=== PATIENT | male | born 1985 | race Caucasian/White ===

== ENCOUNTER 2018-08-28 20:59 | Inpatient (IN) | payer OTHER ==
[2018-08-28] MEDS ORDERED: Sodium Chloride 0.9% 1,000 ML IV STA (21:25)
[2018-08-28 22:03] LABS: VENOUS BLOOD GAS BASE EXCESS 2.9 mmol/L (0.0-2.0); VENOUS BLOOD GAS PCO2 34 mmHg (40-60); VENOUS BLOOD GAS PO2 21 mm/Hg (30-55); VENOUS BLOOD PH 7.49 (7.32-7.43)
[2018-08-28 22:35] LABS: BASO % 0.2 % (0.0-2.0); EOS % 0.4 % (0.0-4.0); HEMOGLOBIN 14.6 g/dL (12.0-18.0); INR 1.2; LYMPH # 0.7 K/uL (1.0-4.3); LYMPH % 7.5 % (20.0-40.0); MEAN CELL VOLUME 90.4 fl (80.0-94.0); MEAN CORPUSCULAR HEMOGLOBIN 30.7 pg (27.0-31.0); MEAN CORPUSCULAR HGB CONC 33.9 g/dL (33.0-37.0); MEAN PLATELET VOLUME 7.9 fl (7.2-11.7); MONO # 0.1 K/uL (0.0-0.8); MONO % 1.3 % (0.0-10.0); NEUT # 8.6 K/uL (1.8-7.0); NEUT % 90.6 % (50.0-75.0); NRBC % 0.1 % (0.0-0.0); PLATELET COUNT 209 K/uL (130-400); PROTHROMBIN TIME 13.9 Seconds (9.8-13.1); RBC 4.75 Mil/uL (4.40-5.90); RED CELL DISTRIBUTION WIDTH 13.5 % (11.5-14.5); WHITE BLOOD COUNT 9.5 K/uL (4.8-10.8)
[2018-08-28 22:38] LABS: BLOOD UREA NITROGEN 14 mg/dl (9-20); CALCIUM 8.8 mg/dL (8.4-10.2); GFR NON-AFRICAN AMERICAN > 60; PARTIAL THROMBOPLASTIN TIME 27.6 Seconds (25.6-37.1)
[2018-08-28 23:19] LABS: BANDS 5 % (0-2); LYMPHOCYTE 9 % (20-50); MONOCYTE 2 % (0-10); NEUTROPHIL 84 % (42-75); PLATELET ESTIMATE NORMAL (NORMAL); TOTAL CELLS COUNTED 100
[2018-08-28] MEDS ORDERED: Pantoprazole 40 MG in Sodium Chloride 0.9% 100 ML IVPB STA (23:22)
[2018-08-28 23:44] LABS: BASO % 0.2 % (0.0-2.0); EOS % 0.1 % (0.0-4.0); HEMOGLOBIN 13.9 g/dL (12.0-18.0); LYMPH # 0.6 K/uL (1.0-4.3); LYMPH % 4.6 % (20.0-40.0); MEAN CELL VOLUME 88.1 fl (80.0-94.0); MEAN CORPUSCULAR HEMOGLOBIN 30.2 pg (27.0-31.0); MEAN CORPUSCULAR HGB CONC 34.3 g/dL (33.0-37.0); MEAN PLATELET VOLUME 7.6 fl (7.2-11.7); MONO # 0.3 K/uL (0.0-0.8); MONO % 2.7 % (0.0-10.0); NEUT # 11.7 K/uL (1.8-7.0); NEUT % 92.4 % (50.0-75.0); RBC 4.6 Mil/uL (4.40-5.90); RED CELL DISTRIBUTION WIDTH 13.4 % (11.5-14.5); WHITE BLOOD COUNT 12.7 K/uL (4.8-10.8)
--- NOTE | 2018-08-28 23:44 | ED PDOC ---
HPI: Abdomen Time Seen by Provider: 08/28/18 21:08 Chief Complaint (Nursing): Abdominal Pain History Per: Patient History/Exam Limitations: no limitations Onset/Duration Of Symptoms: Hrs Outside of [place] travel?: No Current Symptoms Are (Timing): Still Present Additional Complaint(s): 32 year old M with no PMHx presenting with rectal bleeding and fever. States he has felt an internal hemorrhoid in the past that he has been able to push back in. Today he states he was using his bidet and he believes it became irritated and has bled profusely all day. He states he feels weak and has mild abdominal discomfort. Also complaining of feeling chills, sweats and nasal congestion. PMD: None Past Medical History Reviewed: Historical Data, Nursing Documentation, Vital Signs Vital Signs: Last Vital Signs Temp 100.3 F H 08/28/18 21:00 Pulse 148 H 08/28/18 21:00 Resp 22 08/28/18 21:00 BP 138/74 08/28/18 21:00 Pulse Ox 99 08/28/18 21:00 - Medical History PMH: No Chronic Diseases - Family History Family History: States: Unknown Family Hx - Home Medications Home Medications: Ambulatory Orders Medication Instructions Recorded No Known Home Med 08/29/18 - Allergies Allergies/Adverse Reactions: Allergies Allergy/AdvReac Type Severity Reaction Status Date / Time No Known Allergies Allergy Verified 08/28/18 21:00 Review of Systems ROS Statement: Except As Marked, All Systems Reviewed And Found Negative Constitutional: Positive for: Fever, Chills, Sweats ENT: Positive for: Nose Congestion Gastrointestinal: Positive for: Other (Rectal bleeding) Physical Exam - Reviewed Nursing Documentation Reviewed: Yes Vital Signs Reviewed: Yes - Physical Exam Appears: Positive for: Non-toxic, No Acute Distress. Negative for: Well (Pale) Head Exam: Positive for: ATRAUMATIC, NORMAL INSPECTION, NORMOCEPHALIC Skin: Positive for: Normal Color, Warm, DRY Eye Exam: Positive for: EOMI, Normal appearance, PERRL ENT: Positive for: Normal ENT Inspection Neck: Positive for: Normal, Painless ROM Cardiovascular/Chest: Positive for: Regular Rate, Rhythm Respiratory: Positive for: CNT, Normal Breath Sounds Gastrointestinal/Abdominal: Positive for: Normal Exam, Soft. Negative for: Tenderness Back: Positive for: Normal Inspection Rectal: Positive for: Other (Venous bleeding, non-pulsatile from rectum (personnel director: Rosie Ga RN), difficult to evaluate for external hemorrhoid due to active bleeding) Extremity: Positive for: Normal ROM Neurologic/Psych: Positive for: Alert, Oriented - Laboratory Results Result Diagrams: 08/28/18 23:33 08/28/18 21:49 Lab Results: pO2 21 mm/Hg (30-55) L 08/28/18 21:56 VBG pH 7.49 (7.32-7.43) H 08/28/18 21:56 VBG pCO2 34 mmHg (40-60) L 08/28/18 21:56 VBG HCO3 25.7 mmol/L 08/28/18 21:56 VBG Total CO2 26.9 mmol/L (22-28) 08/28/18 21:56 VBG O2 Sat (Calc) 46.3 % (40-65) 08/28/18 21:56 VBG Base Excess 2.9 mmol/L (0.0-2.0) H 08/28/18 21:56 VBG Potassium 4.1 mmol/L (3.6-5.2) 08/28/18 21:56 Sodium 137.0 mmol/L (132-148) 08/28/18 21:56 Chloride 104.0 mmol/L (98-107) 08/28/18 21:56 Glucose 109 mg/dL (75-110) 08/28/18 21:56 Lactate 2.7 mmol/L (0.7-2.1) H 08/28/18 21:56 FiO2 21.0 % 08/28/18 21:56 Blood Gas Comments Lac=2.7 08/28/18 21:56 Crit Value Called To josh Taylor 08/28/18 21:56 Crit Value Called By 22 08/28/18 21:56 Crit Value Read Back Y 08/28/18 21:56 Blood Gas Notified Time 220208/28/18 21:56 PT 13.9 Seconds (9.8-13.1) H 08/28/18 21:49 INR 1.2 08/28/18 21:49 APTT 27.6 Seconds (25.6-37.1) 08/28/18 21:49 - ECG O2 Sat by Pulse Oximetry: 99 Pulse Ox Interpretation: Normal Medical Decision Making Medical Decision MakinPM Patient presenting with fever and rectal bleeding --Mild fever, possibly URI or influenza, patient did not get flu shot --Rectal bleedin IV's placed, surgery aware --Unclear if related to hemorrhoid, angiodysplasia, or other cause 1130PM --Surgery at bedside, placed packing with suture --Will continue to monitor --2nd CBC pending 1230AM --Bleeding has slowed significantly status post packing by surgical manager --BP 96/43, HR 104 --Will admit to hospitalist service for overnight observation --Dr. Maya is made aware of case by surgical manager 200AM --Bleeding stopped by placing guauze soaked in TXA --CT shows diverticulosis --Patient stable for Tele --HR 93 Disposition - Clinical Impression Clinical Impression: Rectal bleeding - Disposition Disposition Time: 00:27 Condition: FAIR
--- NOTE | 2018-08-29 00:03 | CP.PCM.CON ---
<Frantz Fan - Last Filed: 08/28/18 23:56> History of Present Illness - History of Present Illness History of Present Illness: General Surgery Consult Note for Dr. Maya 32 year old male, past medical history of hemorrhoids, presents to the emergency department with rectal bleeding that started earlier today. Patient states he was feeling feverish, sweaty, and noticed bright red blood per rectum. Patient states he is having bowel movements with clots and bright red blood. He has hemorrhoids and occasionally noticed blood on the toilet paper after bowel movements, but he has never bled this much before. Patient admits to chronic constipation that worsens with fatty foods which has exacerbated his hemorrhoids in the past. He has at times in the past had to push the hemorrhoid back in after a bowel movement. Denies abdominal pain, nausea, or vomiting. Patient has never had a EGD or colonoscopy before. Denies shortness of breath, dizziness, headaches, chest pain, palpitations, or urinary symptoms. PMH: Hemorrhoids, Chronic constipation PSH: None FH: Noncontributory SH: Denies tobacco, alcohol, drugs ALL: NKDA Meds: See MAR Review of Systems - Constitutional Constitutional: Excessive Sweating, Fever. absent: Chills - EENT Eyes: absent: Blurred Vision, Change in Vision Nose/Mouth/Throat: absent: Nasal Congestion, Nasal Discharge - Cardiovascular Cardiovascular: absent: Chest Pain, Dyspnea - Respiratory Respiratory: absent: Cough, Dyspnea - Gastrointestinal Gastrointestinal: Change in Stool Character, Constipation. absent: Abdominal Pain, Nausea, Vomiting - Genitourinary Genitourinary: absent: Difficulty Urinating, Dysuria - Musculoskeletal Musculoskeletal: absent: Back Pain, Neck Pain - Integumentary Integumentary: Bleeding Lesions - Neurological Neurological: absent: Confusion, Dizziness, Headaches - Psychiatric Psychiatric: absent: Anxiety, Depression Past Patient History - Past Social History Smoking Status: Unknown If Ever Smoked - GASTROINTESTINAL Hx Hemorrhoids: Yes - PSYCHIATRIC Hx Substance Use: No Meds Allergies/Adverse Reactions: Allergies Allergy/AdvReac Type Severity Reaction Status Date / Time No Known Allergies Allergy Verified 08/28/18 21:00 - Medications Medications: Current Medications Pantoprazole Sodium 40 mg/ (Sodium Chloride) 100 mls @ 20 mls/hr IVPB STAT STA Stop: 08/29/18 04:21 Physical Exam - Constitutional Appears: Non-toxic, No Acute Distress - Head Exam Head Exam: ATRAUMATIC, NORMAL INSPECTION, NORMOCEPHALIC - Eye Exam Eye Exam: EOMI - ENT Exam ENT Exam: Mucous Membranes Moist - Respiratory Exam Respiratory Exam: NORMAL BREATHING PATTERN. absent: Respiratory Distress - Cardiovascular Exam Cardiovascular Exam: Tachycardia, REGULAR RHYTHM - GI/Abdominal Exam GI & Abdominal Exam: Normal Bowel Sounds, Soft. absent: Tenderness - Rectal Exam Rectal Exam: Hemorrhoids Additional comments: Actively bleeding external hemorrhoid in the right anterior position with a visible thrombosed hemorrhoid adjacent - Neurological Exam Neurological exam: Alert, Oriented x3 - Psychiatric Exam Psychiatric exam: Normal Affect, Normal Mood - Skin Skin Exam: Dry, Intact, Normal Color, Warm Results - Vital Signs Recent Vital Signs: Last Vital Signs Temp 100.3 F H 08/28/18 23:49 Pulse 110 H 08/28/18 23:49 Resp 22 08/28/18 23:49 BP 97/56 L 08/28/18 23:49 Pulse Ox 98 08/28/18 23:49 - Labs Result Diagrams: 08/28/18 23:33 08/28/18 21:49 Labs: Laboratory Results - last 24 hr 08/28/18 08/28/18 08/28/18 21:49 21:49 21:49 WBC 9.5 RBC 4.75 Hgb 14.6 Hct 42.9 MCV 90.4 MCH 30.7 MCHC 33.9 RDW 13.5 Plt Count 209 MPV 7.9 Neut % (Auto) 90.6 H Lymph % (Auto) 7.5 L [place] % (Auto) 1.3 Eos % (Auto) 0.4 Baso % (Auto) 0.2 Neut # (Auto) 8.6 H Lymph # (Auto) 0.7 L [place] # (Auto) 0.1 Eos # (Auto) 0.0 Baso # (Auto) 0.0 Neutrophils % (Manual) 84 H Band Neutrophils % 5 H Lymphocytes % (Manual) 9 L Monocytes % (Manual) 2 Platelet Estimate Normal PT INR APTT pO2 VBG pH VBG pCO2 VBG HCO3 VBG Total CO2 VBG O2 Sat (Calc) VBG Base Excess VBG Potassium Glucose Lactate FiO2 Blood Gas Comments Crit Value Called To Crit Value Called By Crit Value Read Back Blood Gas Notified Time Sodium 137 Potassium 3.9 Chloride 104 Carbon Dioxide 24 Anion Gap 13 BUN 14 Creatinine 1.2 Est GFR ( Amer) > 60 Est GFR (Non-Af Amer) > 60 Random Glucose 108 Calcium 8.8 Venous Blood Potassium Influenza Typ A,B (EIA) Negative for flu a/b Blood Type Antibody Screen Crossmatch BBK History Checked 08/28/18 08/28/18 08/28/18 21:49 21:49 21:56 WBC RBC Hgb Hct MCV MCH MCHC RDW Plt Count MPV Neut % (Auto) Lymph % (Auto) [place] % (Auto) Eos % (Auto) Baso % (Auto) Neut # (Auto) Lymph # (Auto) [place] # (Auto) Eos # (Auto) Baso # (Auto) Neutrophils % (Manual) Band Neutrophils % Lymphocytes % (Manual) Monocytes % (Manual) Platelet Estimate PT 13.9 H INR 1.2 APTT 27.6 pO2 21 L VBG pH 7.49 H VBG pCO2 34 L VBG HCO3 25.7 VBG Total CO2 26.9 VBG O2 Sat (Calc) 46.3 VBG Base Excess 2.9 H VBG Potassium 4.1 Glucose 109 Lactate 2.7 H FiO2 21.0 Blood Gas Comments Lac=2.7 Crit Value Called To josh Taylor Crit Value Called By 22 Crit Value Read Back Y Blood Gas Notified Time 2202 Sodium 137.0 Potassium Chloride 104.0 Carbon Dioxide Anion Gap BUN Creatinine Est GFR ( Amer) Est GFR (Non-Af Amer) Random Glucose Calcium Venous Blood Potassium 4.1 Influenza Typ A,B (EIA) Blood Type B POSITIVE Antibody Screen Negative Crossmatch See Detail BBK History Checked No verified bt 08/28/18 23:33 WBC 12.7 H RBC 4.60 Hgb 13.9 Hct 40.5 MCV 88.1 D MCH 30.2 MCHC 34.3 RDW 13.4 Plt Count 186 MPV 7.6 Neut % (Auto) 92.4 H Lymph % (Auto) 4.6 L [place] % (Auto) 2.7 Eos % (Auto) 0.1 Baso % (Auto) 0.2 Neut # (Auto) 11.7 H Lymph # (Auto) 0.6 L [place] # (Auto) 0.3 Eos # (Auto) 0.0 Baso # (Auto) 0.0 Neutrophils % (Manual) Band Neutrophils % Lymphocytes % (Manual) Monocytes % (Manual) Platelet Estimate PT INR APTT pO2 VBG pH VBG pCO2 VBG HCO3 VBG Total CO2 VBG O2 Sat (Calc) VBG Base Excess VBG Potassium Glucose Lactate FiO2 Blood Gas Comments Crit Value Called To Crit Value Called By Crit Value Read Back Blood Gas Notified Time Sodium Potassium Chloride Carbon Dioxide Anion Gap BUN Creatinine Est GFR ( Amer) Est GFR (Non-Af Amer) Random Glucose Calcium Venous Blood Potassium Influenza Typ A,B (EIA) Blood Type Antibody Screen Crossmatch BBK History Checked Assessment & Plan - Assessment and Plan (Free Text) Assessment: 32M w/ bleeding external hemorrhoid Plan: Applied tampon pressure dressing - continue to monitor Monitor for acute bleeding episodes AM labs Transfuse as needed Continue IVF NPO Continue to monitor vitals If patient's bleeding not adequately controlled, will proceed to OR in the morning D/w Dr. Francesco Fan PGY1 <Nader Ryan - Last Filed: 08/29/18 11:25> History of Present Illness - History of Present Illness History of Present Illness: Patient was seen and examined at the bedside. Agree with resident's note above. Still has bleeding from his internal hemorrhoid. Meds - Medications Medications: Current Medications Acetaminophen (Tylenol 325mg Tab) 650 mg PO Q6 PRN PRN Reason: Fever >100.4 F Docusate Sodium (Colace) 100 mg PO BID [facility] Sodium Chloride (Sodium Chloride 0.9%) 1,000 mls @ 150 mls/hr IV .Q6H40M [facility] Stop: 08/30/18 00:17 Last Admin: 08/29/18 09:14 Dose: Not Given Azithromycin 500 mg/ Sodium (Chloride) 250 mls @ 250 mls/hr IVPB DAILY [facility]; Protocol Last Admin: 08/29/18 10:24 Dose: 250 mls/hr Pantoprazole Sodium (Protonix Ec Tab) 40 mg PO DAILY [facility] Last Admin: 08/29/18 09:15 Dose: Not Given Physical Exam - Rectal Exam Additional comments: bleeding internal hemorrhoid on the right Results - Vital Signs Recent Vital Signs: Last Vital Signs Temp 98.6 F 08/29/18 08:24 Pulse 87 08/29/18 08:24 Resp 20 08/29/18 08:24 BP 119/45 L 08/29/18 08:24 Pulse Ox 99 08/29/18 08:24 - Labs Result Diagrams: 08/29/18 04:35 08/29/18 04:35 Labs: Laboratory Results - last 24 hr 08/28/18 08/28/18 08/28/18 21:49 21:49 21:49 WBC 9.5 RBC 4.75 Hgb 14.6 Hct 42.9 MCV 90.4 MCH 30.7 MCHC 33.9 RDW 13.5 Plt Count 209 MPV 7.9 Neut % (Auto) 90.6 H Lymph % (Auto) 7.5 L [place] % (Auto) 1.3 Eos % (Auto) 0.4 Baso % (Auto) 0.2 Neut # (Auto) 8.6 H Lymph # (Auto) 0.7 L [place] # (Auto) 0.1 Eos # (Auto) 0.0 Baso # (Auto) 0.0 Neutrophils % (Manual) 84 H Band Neutrophils % 5 H Lymphocytes % (Manual) 9 L Monocytes % (Manual) 2 Platelet Estimate Normal PT INR APTT pO2 VBG pH VBG pCO2 VBG HCO3 VBG Total CO2 VBG O2 Sat (Calc) VBG Base Excess VBG Potassium Glucose Lactate FiO2 Blood Gas Comments Crit Value Called To Crit Value Called By Crit Value Read Back Blood Gas Notified Time Sodium 137 Potassium 3.9 Chloride 104 Carbon Dioxide 24 Anion Gap 13 BUN 14 Creatinine 1.2 Est GFR ( Amer) > 60 Est GFR (Non-Af Amer) > 60 Random Glucose 108 Calcium 8.8 Venous Blood Potassium Influenza Typ A,B (EIA) Negative for flu a/b Blood Type Blood Type Confirm Antibody Screen Crossmatch BBK History Checked 08/28/18 08/28/18 08/28/18 21:49 21:49 21:56 WBC RBC Hgb Hct MCV MCH MCHC RDW Plt Count MPV Neut % (Auto) Lymph % (Auto) [place] % (Auto) Eos % (Auto) Baso % (Auto) Neut # (Auto) Lymph # (Auto) [place] # (Auto) Eos # (Auto) Baso # (Auto) Neutrophils % (Manual) Band Neutrophils % Lymphocytes % (Manual) Monocytes % (Manual) Platelet Estimate PT 13.9 H INR 1.2 APTT 27.6 pO2 21 L VBG pH 7.49 H VBG pCO2 34 L VBG HCO3 25.7 VBG Total CO2 26.9 VBG O2 Sat (Calc) 46.3 VBG Base Excess 2.9 H VBG Potassium 4.1 Glucose 109 Lactate 2.7 H FiO2 21.0 Blood Gas Comments Lac=2.7 Crit Value Called To josh Taylor Crit Value Called By 22 Crit Value Read Back Y Blood Gas Notified Time 2203 Sodium 137.0 Potassium Chloride 104.0 Carbon Dioxide Anion Gap BUN Creatinine Est GFR ( Amer) Est GFR (Non-Af Amer) Random Glucose Calcium Venous Blood Potassium 4.1 Influenza Typ A,B (EIA) Blood Type B POSITIVE Blood Type Confirm Antibody Screen Negative Crossmatch See Detail BBK History Checked No verified bt 08/28/18 08/28/18 08/29/18 23:33 23:33 04:35 WBC 12.7 H 14.1 H RBC 4.60 4.30 L Hgb 13.9 13.1 Hct 40.5 38.0 MCV 88.1 D 88.4 MCH 30.2 30.5 MCHC 34.3 34.5 RDW 13.4 13.6 Plt Count 186 184 MPV 7.6 Neut % (Auto) 92.4 H Lymph % (Auto) 4.6 L [place] % (Auto) 2.7 Eos % (Auto) 0.1 Baso % (Auto) 0.2 Neut # (Auto) 11.7 H Lymph # (Auto) 0.6 L [place] # (Auto) 0.3 Eos # (Auto) 0.0 Baso # (Auto) 0.0 Neutrophils % (Manual) Band Neutrophils % Lymphocytes % (Manual) Monocytes % (Manual) Platelet Estimate PT INR APTT pO2 VBG pH VBG pCO2 VBG HCO3 VBG Total CO2 VBG O2 Sat (Calc) VBG Base Excess VBG Potassium Glucose Lactate FiO2 Blood Gas Comments Crit Value Called To Crit Value Called By Crit Value Read Back Blood Gas Notified Time Sodium Potassium Chloride Carbon Dioxide Anion Gap BUN Creatinine Est GFR ( Amer) Est GFR (Non-Af Amer) Random Glucose Calcium Venous Blood Potassium Influenza Typ A,B (EIA) Blood Type Blood Type Confirm B POSITIVE Antibody Screen Crossmatch BBK History Checked 08/29/18 04:35 WBC RBC Hgb Hct MCV MCH MCHC RDW Plt Count MPV Neut % (Auto) Lymph % (Auto) [place] % (Auto) Eos % (Auto) Baso % (Auto) Neut # (Auto) Lymph # (Auto) [place] # (Auto) Eos # (Auto) Baso # (Auto) Neutrophils % (Manual) Band Neutrophils % Lymphocytes % (Manual) Monocytes % (Manual) Platelet Estimate PT INR APTT pO2 VBG pH VBG pCO2 VBG HCO3 VBG Total CO2 VBG O2 Sat (Calc) VBG Base Excess VBG Potassium Glucose Lactate FiO2 Blood Gas Comments Crit Value Called To Crit Value Called By Crit Value Read Back Blood Gas Notified Time Sodium 137 Potassium 3.6 Chloride 104 Carbon Dioxide 23 Anion Gap 14 BUN 13 Creatinine 1.1 Est GFR ( Amer) > 60 Est GFR (Non-Af Amer) > 60 Random Glucose 122 H Calcium 8.2 L Venous Blood Potassium Influenza Typ A,B (EIA) Blood Type Blood Type Confirm Antibody Screen Crossmatch BBK History Checked Assessment & Plan - Assessment and Plan (Free Text) Assessment: 32 y.o. male with bleeding internal hemorrhoid Plan: - To OR for Hemmorhoidectomy
[2018-08-29] MEDS ORDERED: Oxycodone/Acetaminophen 5/325 mg Tab PO PRN ×3 (00:18→12:47)
[2018-08-29] MEDS ORDERED: TRANEXAMIC ACID IVPB ONE (01:16)
[2018-08-29] MEDS ORDERED: Lidocaine 2% w Epi 1:100,000 Inj IJ ONE (01:30)
--- NOTE | 2018-08-29 01:55 | CP.PCM.HP ---
History of Present Illness - History of Present Illness History of Present Illness: 32 yo M with pmhx of internal hemorrhoids presents with rectal bleeding. Pt states that for approximately 12 hours he has been experiencing a constant flow of blood from his rectum. Started when he was experincing a bowel movement. He tried applying pressure, however, bleeding could not be controlled Of note: he reports dx of internal hemorrhoids 10 years ago. Tx: bedet and rectal cream. Denies anal trauma, or foreign objects placed in his rectum. Denies family or personal history of difficulty clotting. He also mentions 1 day history of fever, chills with shortness of breath. No current fever, or SOB. PMD: None Surg: none Soc: Denies: smoking, alcohol, illicit drugs; lives with Familyhx: father with hemorrhoids; Mother with cardiac stent Rx: Zyrtec NKDA Present on Admission - Present on Admission Any Indicators Present on Admission: No History of Uncontrolled Diabetes: No Urinary Catheter: No Decubitus Ulcer Present: No Review of Systems - Cardiovascular Cardiovascular: absent: Chest Pain, Chest Pain at Rest - Respiratory Respiratory: absent: Cough, Dyspnea, Hemoptysis - Gastrointestinal Gastrointestinal: Change in Stool Character, Hematochezia. absent: Abdominal Pain - Neurological Neurological: absent: Abnormal Gait - Hematologic/Lymphatic Hematologic: absent: Easy Bleeding, Easy Bruising Past Patient History - Past Social History Smoking Status: Never Smoked Alcohol: None Drugs: Denies Home Situation {Lives}: With Family - CARDIAC Hx Cardiac Disorders: No - PULMONARY Hx Respiratory Disorders: No - NEUROLOGICAL Hx Neurological Disorder: No - HEENT Hx HEENT Problems: No - RENAL Hx Chronic Kidney Disease: No - ENDOCRINE/METABOLIC Hx Endocrine Disorders: No - HEMATOLOGICAL/ONCOLOGICAL Hx Blood Disorders: No - INTEGUMENTARY Hx Dermatological Problems: No - MUSCULOSKELETAL/RHEUMATOLOGICAL Hx Musculoskeletal Disorders: No - GASTROINTESTINAL Hx Gastrointestinal Disorders: Yes Hx Hemorrhoids: Yes - GENITOURINARY/GYNECOLOGICAL Hx Genitourinary Disorders: No - PSYCHIATRIC Hx Psychophysiologic Disorder: No Hx Substance Use: No - SURGICAL HISTORY Hx Surgeries: No Meds Allergies/Adverse Reactions: Allergies Allergy/AdvReac Type Severity Reaction Status Date / Time No Known Allergies Allergy Verified 08/28/18 21:00 Physical Exam - Constitutional Appears: No Acute Distress - Eye Exam Eye Exam: EOMI - ENT Exam ENT Exam: Mucous Membranes Moist - Respiratory Exam Respiratory Exam: Clear to Auscultation Bilateral, NORMAL BREATHING PATTERN. absent: Wheezes, Respiratory Distress - Cardiovascular Exam Cardiovascular Exam: Tachycardia, +S1, +S2 - GI/Abdominal Exam GI & Abdominal Exam: Normal Bowel Sounds, Soft. absent: Tenderness - Rectal Exam Additional comments: Active rectal bleed with packing in place. - Neurological Exam Neurological exam: Alert, CN II-XII Intact, Oriented x3 - Psychiatric Exam Psychiatric exam: Normal Affect, Normal Mood Results - Vital Signs Recent Vital Signs: Last Vital Signs Temp 100.3 F H 08/28/18 23:49 Pulse 110 H 08/28/18 23:49 Resp 22 08/28/18 23:49 BP 97/56 L 08/28/18 23:49 Pulse Ox 99 08/29/18 00:29 - Labs Result Diagrams: 08/28/18 23:33 08/28/18 21:49 Labs: Laboratory Results - last 24 hr 08/28/18 08/28/18 08/28/18 21:49 21:49 21:49 WBC 9.5 RBC 4.75 Hgb 14.6 Hct 42.9 MCV 90.4 MCH 30.7 MCHC 33.9 RDW 13.5 Plt Count 209 MPV 7.9 Neut % (Auto) 90.6 H Lymph % (Auto) 7.5 L [place] % (Auto) 1.3 Eos % (Auto) 0.4 Baso % (Auto) 0.2 Neut # (Auto) 8.6 H Lymph # (Auto) 0.7 L [place] # (Auto) 0.1 Eos # (Auto) 0.0 Baso # (Auto) 0.0 Neutrophils % (Manual) 84 H Band Neutrophils % 5 H Lymphocytes % (Manual) 9 L Monocytes % (Manual) 2 Platelet Estimate Normal PT INR APTT pO2 VBG pH VBG pCO2 VBG HCO3 VBG Total CO2 VBG O2 Sat (Calc) VBG Base Excess VBG Potassium Glucose Lactate FiO2 Blood Gas Comments Crit Value Called To Crit Value Called By Crit Value Read Back Blood Gas Notified Time Sodium 137 Potassium 3.9 Chloride 104 Carbon Dioxide 24 Anion Gap 13 BUN 14 Creatinine 1.2 Est GFR ( Amer) > 60 Est GFR (Non-Af Amer) > 60 Random Glucose 108 Calcium 8.8 Venous Blood Potassium Influenza Typ A,B (EIA) Negative for flu a/b Blood Type Blood Type Confirm Antibody Screen Crossmatch BBK History Checked 08/28/18 08/28/18 08/28/18 21:49 21:49 21:56 WBC RBC Hgb Hct MCV MCH MCHC RDW Plt Count MPV Neut % (Auto) Lymph % (Auto) [place] % (Auto) Eos % (Auto) Baso % (Auto) Neut # (Auto) Lymph # (Auto) [place] # (Auto) Eos # (Auto) Baso # (Auto) Neutrophils % (Manual) Band Neutrophils % Lymphocytes % (Manual) Monocytes % (Manual) Platelet Estimate PT 13.9 H INR 1.2 APTT 27.6 pO2 21 L VBG pH 7.49 H VBG pCO2 34 L VBG HCO3 25.7 VBG Total CO2 26.9 VBG O2 Sat (Calc) 46.3 VBG Base Excess 2.9 H VBG Potassium 4.1 Glucose 109 Lactate 2.7 H FiO2 21.0 Blood Gas Comments Lac=2.7 Crit Value Called To josh Taylor Crit Value Called By 22 Crit Value Read Back Y Blood Gas Notified Time 220 Sodium 137.0 Potassium Chloride 104.0 Carbon Dioxide Anion Gap BUN Creatinine Est GFR ( Amer) Est GFR (Non-Af Amer) Random Glucose Calcium Venous Blood Potassium 4.1 Influenza Typ A,B (EIA) Blood Type B POSITIVE Blood Type Confirm Antibody Screen Negative Crossmatch See Detail BBK History Checked No verified bt 08/28/18 08/28/18 23:33 23:33 WBC 12.7 H RBC 4.60 Hgb 13.9 Hct 40.5 MCV 88.1 D MCH 30.2 MCHC 34.3 RDW 13.4 Plt Count 186 MPV 7.6 Neut % (Auto) 92.4 H Lymph % (Auto) 4.6 L [place] % (Auto) 2.7 Eos % (Auto) 0.1 Baso % (Auto) 0.2 Neut # (Auto) 11.7 H Lymph # (Auto) 0.6 L [place] # (Auto) 0.3 Eos # (Auto) 0.0 Baso # (Auto) 0.0 Neutrophils % (Manual) Band Neutrophils % Lymphocytes % (Manual) Monocytes % (Manual) Platelet Estimate PT INR APTT pO2 VBG pH VBG pCO2 VBG HCO3 VBG Total CO2 VBG O2 Sat (Calc) VBG Base Excess VBG Potassium Glucose Lactate FiO2 Blood Gas Comments Crit Value Called To Crit Value Called By Crit Value Read Back Blood Gas Notified Time Sodium Potassium Chloride Carbon Dioxide Anion Gap BUN Creatinine Est GFR ( Amer) Est GFR (Non-Af Amer) Random Glucose Calcium Venous Blood Potassium Influenza Typ A,B (EIA) Blood Type Blood Type Confirm B POSITIVE Antibody Screen Crossmatch BBK History Checked Assessment & Plan - Assessment and Plan (Free Text) Assessment: 32 yo M with pmhx of internal hemorrhoids admitted for persistent rectal bleeding. Plan: Rectal bleed Admit to tele electromedical equipment technician H/H stable Type and cross match #2 units PRN Surgery consulted: Dr. Maya; recs appreciated IVF per surgery NPO F/U CBC q 4H; blood culture f/u CT A/P DVT/GI prophylaxis SCDs; active bleed protonix Case and plan d/w Dr. Phong Duran MD PGY2
[2018-08-29] MEDS: Sodium Chloride 0.9% 1,000 ML IV SCH ×3 (02:18→17:24)
[2018-08-29] MEDS ORDERED: Sodium Chloride 0.9% 50 ML IV ONE (02:22)
[2018-08-29] MEDS ORDERED: Iohexol 300 100 ML IJ ONE (02:22)
[2018-08-29 05:41] LABS: HEMOGLOBIN 13.1 g/dL (12.0-18.0); MEAN CELL VOLUME 88.4 fl (80.0-94.0); MEAN CORPUSCULAR HEMOGLOBIN 30.5 pg (27.0-31.0); MEAN CORPUSCULAR HGB CONC 34.5 g/dL (33.0-37.0); RBC 4.3 Mil/uL (4.40-5.90); RED CELL DISTRIBUTION WIDTH 13.6 % (11.5-14.5); WHITE BLOOD COUNT 14.1 K/uL (4.8-10.8)
[2018-08-29 05:44] LABS: BLOOD UREA NITROGEN 13 mg/dl (9-20); CALCIUM 8.2 mg/dL (8.4-10.2); GFR NON-AFRICAN AMERICAN > 60
[2018-08-29] MEDS ORDERED: Influenza Vaccine (5 YR UP)/PF 60 MCG/0.5 ML SYR IM ONE (06:00)
--- NOTE | 2018-08-29 08:03 | CP.PCM.PN ---
<Eb Rosa - Last Filed: 08/29/18 08:01> Subjective - Date & Time of Evaluation Date of Evaluation: 08/29/18 Time of Evaluation: 08:01 - Subjective Subjective: SURGERY NOTE FOR DR. BAUTISTA 32M seen and examined at bedside. Patient state bleeding stopped overnight. Admits to mild pain in the anal region. He has had bleeding in the past but states not this much. Denies abdominal pain, nausea or vomiting. Objective - Vital Signs/Intake and Output Vital Signs (last 24 hours): Temp Pulse Resp BP Pulse Ox 98.6 F 90 20 107/71 99 08/29/18 03:17 08/29/18 03:56 08/29/18 03:56 08/29/18 03:17 08/29/18 04:24 - Medications Medications: Current Medications Acetaminophen (Tylenol 325mg Tab) 650 mg PO Q6 PRN PRN Reason: Fever >100.4 F Docusate Sodium (Colace) 100 mg PO BID [facility] Sodium Chloride (Sodium Chloride 0.9%) 1,000 mls @ 150 mls/hr IV .Q6H40M [facility] Stop: 08/30/18 00:17 Last Admin: 08/29/18 02:18 Dose: 150 mls/hr Ondansetron HCl (Zofran Tab) 4 mg PO Q6 PRN PRN Reason: Nausea/Vomiting Pantoprazole Sodium (Protonix Ec Tab) 40 mg PO DAILY [facility] - Labs Labs: 08/29/18 04:35 08/29/18 04:35 PT 13.9 Seconds (9.8-13.1) H 08/28/18 21:49 INR 1.2 08/28/18 21:49 APTT 27.6 Seconds (25.6-37.1) 08/28/18 21:49 - Constitutional Appears: Non-toxic, No Acute Distress - Respiratory Exam Respiratory Exam: Clear to Ausculation Bilateral, NORMAL BREATHING PATTERN - Cardiovascular Exam Cardiovascular Exam: REGULAR RHYTHM, +S1, +S2 - GI/Abdominal Exam GI & Abdominal Exam: Soft. absent: Distended, Firm, Guarding, Rigid, Tenderness, Rebound - Rectal Exam Additional comments: no external hemmorhoids Bright red blood noted Mild tenderness - Neurological Exam Neurological Exam: Alert, Awake Assessment and Plan - Assessment and Plan (Free Text) Assessment: 32M with internal hemmorhoids Plan: - Packing region with 4*4s - Hemolytic agents used - Monitor for further bleeding - Monitor hemoglobin - stable Further recs discuss with Dr. Francesco Rosa, PGY3 <Nader Ryan - Last Filed: 08/29/18 11:27> Subjective - Date & Time of Evaluation Time of Evaluation: 09:10 - Subjective Subjective: Patient was seen and examined at the bedside. Agree with resident's note above. Objective - Vital Signs/Intake and Output Vital Signs (last 24 hours): Temp Pulse Resp BP Pulse Ox 98.6 F 87 20 119/45 L 99 08/29/18 08:24 08/29/18 08:24 08/29/18 08:24 08/29/18 08:24 08/29/18 08:24 - Medications Medications: Current Medications Acetaminophen (Tylenol 325mg Tab) 650 mg PO Q6 PRN PRN Reason: Fever >100.4 F Docusate Sodium (Colace) 100 mg PO BID [facility] Sodium Chloride (Sodium Chloride 0.9%) 1,000 mls @ 150 mls/hr IV .Q6H40M [facility] Stop: 08/30/18 00:17 Last Admin: 08/29/18 09:14 Dose: Not Given Azithromycin 500 mg/ Sodium (Chloride) 250 mls @ 250 mls/hr IVPB DAILY [facility]; Protocol Last Admin: 08/29/18 10:24 Dose: 250 mls/hr Pantoprazole Sodium (Protonix Ec Tab) 40 mg PO DAILY [facility] Last Admin: 08/29/18 09:15 Dose: Not Given - Labs Labs: 08/29/18 04:35 08/29/18 04:35 PT 13.9 Seconds (9.8-13.1) H 08/28/18 21:49 INR 1.2 08/28/18 21:49 APTT 27.6 Seconds (25.6-37.1) 08/28/18 21:49 Assessment and Plan - Assessment and Plan (Free Text) Assessment: 32 y.o. male with bleeding internal hemorrhoid Plan: - Keep NPO - IV fluids - To OR for hemorrhoidectomy
[2018-08-29] MEDS ORDERED: Azithromycin 500 MG in Sodium Chloride 0.9% 250 ML IVPB SCH (09:00)
[2018-08-29] MEDS ORDERED: Pantoprazole 40 mg EC Tab PO SCH (09:00)
--- NOTE | 2018-08-29 09:36 | RAD ---
Date of service: 08/29/2018 HISTORY: fever COMPARISON: No prior. FINDINGS: LUNGS: No active pulmonary disease. PLEURA: No significant pleural effusion identified, no pneumothorax apparent. CARDIOVASCULAR: No aortic atherosclerotic calcification present. Normal cardiac size. No pulmonary vascular congestion. OSSEOUS STRUCTURES: No significant abnormalities. VISUALIZED UPPER ABDOMEN: Normal. OTHER FINDINGS: None. IMPRESSION: No acute cardiopulmonary disease appreciated.
--- NOTE | 2018-08-29 09:41 | CP.PCM.PN ---
Subjective - Date & Time of Evaluation Date of Evaluation: 08/29/18 Time of Evaluation: 09:10 Objective - Vital Signs/Intake and Output Vital Signs (last 24 hours): Temp Pulse Resp BP Pulse Ox 98.6 F 87 20 119/45 L 99 08/29/18 08:24 08/29/18 08:24 08/29/18 08:24 08/29/18 08:24 08/29/18 08:24 - Medications Medications: Current Medications Acetaminophen (Tylenol 325mg Tab) 650 mg PO Q6 PRN PRN Reason: Fever >100.4 F Docusate Sodium (Colace) 100 mg PO BID [facility] Sodium Chloride (Sodium Chloride 0.9%) 1,000 mls @ 150 mls/hr IV .Q6H40M [facility] Stop: 08/30/18 00:17 Last Admin: 08/29/18 09:14 Dose: Not Given Azithromycin 500 mg/ Sodium (Chloride) 250 mls @ 250 mls/hr IVPB DAILY GISEL; Protocol Pantoprazole Sodium (Protonix Ec Tab) 40 mg PO DAILY [facility] Last Admin: 08/29/18 09:15 Dose: Not Given - Labs Labs: 08/29/18 04:35 08/29/18 04:35 PT 13.9 Seconds (9.8-13.1) H 08/28/18 21:49 INR 1.2 08/28/18 21:49 APTT 27.6 Seconds (25.6-37.1) 08/28/18 21:49
[2018-08-29] MEDS ORDERED: Rocuronium 10 mg/ml (5 ml) ONE (10:34)
[2018-08-29] MEDS ORDERED: Midazolam 2 MG/2 ML VIAL ONE (10:34)
[2018-08-29] MEDS ORDERED: Succinylcholine Chloride 20 mg/ml Syr (5 ml) IV ONE ×2 (10:34→11:45)
[2018-08-29] MEDS ORDERED: Propofol 10 mg/ml Inj (20 ML) ONE (10:34)
[2018-08-29] MEDS ORDERED: Lidocaine 4% (Laryng-O-Jet) Kit MM ONE (10:35)
--- NOTE | 2018-08-29 10:43 | CT ---
Date of service: 08/29/2018 PROCEDURE: CT Abdomen and Pelvis with contrast HISTORY: abd pain, rectal bleeding COMPARISON: None available. TECHNIQUE: Following the intravenous administration of iodinated contrast material, a CT examination of the abdomen and pelvis performed from the domes of the diaphragms to the symphysis pubis with reformatted datasets provided in axial, sagittal and coronal planes. Oral contrast was not administered as per referring physician request. Coronal and sagittal reformats were generated. Contrast dose: Omnipaque 300, 95 cc Radiation dose: Total exam DLP = 997.7 mGy-cm. This CT exam was performed using one or more of the following dose reduction techniques: Automated exposure control, adjustment of the mA and/or kV according to patient size, and/or use of iterative reconstruction technique. FINDINGS: LOWER THORAX: Linear atelectasis or fibrosis right lower lobe and lingula base. LIVER: Attenuation is appreciate diffusely without mass or intrahepatic biliary duct dilatation compatible with hepatic steatosis. GALLBLADDER AND BILE DUCTS: Unremarkable. PANCREAS: Unremarkable. No gross lesion or ductal dilatation. SPLEEN: Unremarkable. ADRENALS: Unremarkable. No mass. KIDNEYS AND URETERS: Unremarkable. No hydronephrosis. No solid mass. VASCULATURE: Unremarkable. No aortic aneurysm. No aortic atherosclerotic calcification or mural plaque present. BOWEL: Evaluation of the gastrointestinal tract is limited due to the lack of oral contrast administration. No obstruction. No gross mural thickening. Fecal material appears distal to level of the anus, between the buttocks with dermis suggested peripheral rather than superficial to this finding. Clinically correlate further as abscess is not favored here. No evidence of active hemorrhage within the bowel lumen grossly. Note, injection is not CT angiographic which would make it somewhat less likely due identified intraluminal enhanced hemorrhagic products. APPENDIX: Normal appendix. PERITONEUM: Unremarkable. No free fluid. No free air. LYMPH NODES: Unremarkable. No enlarged lymph nodes. BLADDER: Unremarkable. REPRODUCTIVE: Unremarkable. BONES: No acute fracture. OTHER FINDINGS: None. IMPRESSION: 1. No definite suspicious bowel findings. No active hemorrhage grossly evident within the bowel lumen. Fecal material is felt to be present rather than abscess distal rectum between the buttocks and clinical correlation is advised. 2. Hepatic steatosis. Preliminary report provided by Bertrand, 08/29/2018 3:23 a.m..
[2018-08-29] MEDS ORDERED: Azithromycin 500 MG IV IVPB ONE ×2 (11:05→11:20)
[2018-08-29] MEDS ORDERED: ceFAZolin IV 1 gm in Dextrose 1 GM/50 ML BAG IVPB ONE (11:10)
[2018-08-29] MEDS ORDERED: Sevoflurane - Inhalation Anesthetic Liq (250 ml) ONE (11:37)
[2018-08-29] MEDS: Bupivacaine 0.5% Inj(30mL) ONE ×2 (12:02→12:10)
[2018-08-29] MEDS ORDERED: Lactated Ringer's 1,000 ML IV ONE (12:03)
[2018-08-29] MEDS ORDERED: Sodium Chloride 0.9% 1,000 ML IV ONE (12:03)
--- NOTE | 2018-08-29 12:29 | PCM.SURG1 ---
Surgeon's Initial Post Op Note - Surgeon's Notes Surgeon: Shelby Cider Maker: Felix Type of Anesthesia: General Endo Anesthesia Administered By: Alexandre Pre-Operative Diagnosis: bleeding hemorrhoid Operative Findings: bleeding internal hemorrhoid at 7 o'clock position Post-Operative Diagnosis: same Operation Performed: EUA, hemorrhoidectomy Specimen/Specimens Removed: hemorrhoid Estimated Blood Loss: EBL {In ML}: 10 Blood Products Given: N/A Drains Used: No Drains Post-Op Condition: Good Date of Surgery/Procedure: 08/29/18 Time of Surgery/Procedure: 11:00
[2018-08-29] MEDS ORDERED: HYDROmorphone 0.5 mg/0.5 ml ISec IVP PRN (12:46)
[2018-08-29 13:21] LABS: URINE BILIRUBIN NEGATIVE (NEGATIVE); URINE BLOOD MODERATE (NEGATIVE); URINE CLARITY CLEAR (Clear); URINE COLOR YELLOW (YELLOW); URINE GLUCOSE (UA) NEG (NEGATIVE); URINE LEUKOCYTE ESTERASE NEG Leu/uL (Negative); URINE PROTEIN NEGATIVE (NEGATIVE); URINE UROBILINOGEN 0.2-1.0 mg/dL (0.2-1.0)
[2018-08-29 14:00] VITALS: TEMP 97.9
[2018-08-29 14:29] LABS: BASO % 0.4 % (0.0-2.0); EOS % 0.5 % (0.0-4.0); HEMOGLOBIN 13.1 g/dL (12.0-18.0); LYMPH # 0.9 K/uL (1.0-4.3); LYMPH % 11.4 % (20.0-40.0); MEAN CELL VOLUME 89.2 fl (80.0-94.0); MEAN CORPUSCULAR HEMOGLOBIN 30.4 pg (27.0-31.0); MEAN CORPUSCULAR HGB CONC 34.1 g/dL (33.0-37.0); MEAN PLATELET VOLUME 7.2 fl (7.2-11.7); MONO # 0.5 K/uL (0.0-0.8); NEUT # 6.4 K/uL (1.8-7.0); NEUT % 81.7 % (50.0-75.0); NRBC % 0.1 % (0.0-0.0); RBC 4.31 Mil/uL (4.40-5.90); RED CELL DISTRIBUTION WIDTH 13.6 % (11.5-14.5); WHITE BLOOD COUNT 7.8 K/uL (4.8-10.8)
[2018-08-29] MEDS ORDERED: Morphine 4 MG/ML VIAL IV PRN (14:54)
[2018-08-29 16:23] VITALS: BP 107/68; PULSE 74; RESP 20; O2SAT 96
--- NOTE | 2018-08-29 17:59 | CP.PCM.DIS ---
<Juan Patela - Last Filed: 08/29/18 17:12> Provider - Provider Date of Admission: 08/29/18 00:25 Attending physician: Adrianna Darling MD Consults: 08/29/18 08:00 Surgery [General Surgery Consult] Routine Comment: Consulting Provider: Jw Maya Consulting Physician: Jw Maya Reason for Consult: rectal bleed Time Spent in preparation of Discharge (in minutes): 25 Diagnosis - Discharge Diagnosis (1) Hemorrhoid Status: Acute (2) URI (upper respiratory infection) Status: Acute Hospital Course - Lab Results Lab Results: Most Recent Lab Values WBC 7.8 K/uL (4.8-10.8) 08/29/18 14:09 RBC 4.31 Mil/uL (4.40-5.90) L 08/29/18 14:09 Hgb 13.1 g/dL (12.0-18.0) 08/29/18 14:09 Hct 38.5 % (35.0-51.0) 08/29/18 14:09 MCV 89.2 fl (80.0-94.0) 08/29/18 14:09 MCH 30.4 pg (27.0-31.0) 08/29/18 14:09 MCHC 34.1 g/dL (33.0-37.0) 08/29/18 14:09 RDW 13.6 % (11.5-14.5) 08/29/18 14:09 Plt Count 141 K/uL (130-400) 08/29/18 14:09 MPV 7.2 fl (7.2-11.7) 08/29/18 14:09 Neut % (Auto) 81.7 % (50.0-75.0) H 08/29/18 14:09 Lymph % (Auto) 11.4 % (20.0-40.0) L 08/29/18 14:09 [place] % (Auto) 6.0 % (0.0-10.0) 08/29/18 14:09 Eos % (Auto) 0.5 % (0.0-4.0) 08/29/18 14:09 Baso % (Auto) 0.4 % (0.0-2.0) 08/29/18 14:09 Neut # (Auto) 6.4 K/uL (1.8-7.0) 08/29/18 14:09 Lymph # (Auto) 0.9 K/uL (1.0-4.3) L 08/29/18 14:09 [place] # (Auto) 0.5 K/uL (0.0-0.8) 08/29/18 14:09 Eos # (Auto) 0.0 K/uL (0.0-0.7) 08/29/18 14:09 Baso # (Auto) 0.0 K/uL (0.0-0.2) 08/29/18 14:09 Neutrophils % (Manual) 84 % (42-75) H 08/28/18 21:49 Band Neutrophils % 5 % (0-2) H 08/28/18 21:49 Lymphocytes % (Manual) 9 % (20-50) L 08/28/18 21:49 Monocytes % (Manual) 2 % (0-10) 08/28/18 21:49 Platelet Estimate Normal (NORMAL) 08/28/18 21:49 PT 13.9 Seconds (9.8-13.1) H 08/28/18 21:49 INR 1.2 08/28/18 21:49 APTT 27.6 Seconds (25.6-37.1) 08/28/18 21:49 pO2 21 mm/Hg (30-55) L 08/28/18 21:56 VBG pH 7.49 (7.32-7.43) H 08/28/18 21:56 VBG pCO2 34 mmHg (40-60) L 08/28/18 21:56 VBG HCO3 25.7 mmol/L 08/28/18 21:56 VBG Total CO2 26.9 mmol/L (22-28) 08/28/18 21:56 VBG O2 Sat (Calc) 46.3 % (40-65) 08/28/18 21:56 VBG Base Excess 2.9 mmol/L (0.0-2.0) H 08/28/18 21:56 VBG Potassium 4.1 mmol/L (3.6-5.2) 08/28/18 21:56 Sodium 137.0 mmol/L (132-148) 08/28/18 21:56 Chloride 104.0 mmol/L (98-107) 08/28/18 21:56 Glucose 109 mg/dL (75-110) 08/28/18 21:56 Lactate 2.7 mmol/L (0.7-2.1) H 08/28/18 21:56 FiO2 21.0 % 08/28/18 21:56 Blood Gas Comments Lac=2.7 08/28/18 21:56 Crit Value Called To kirk Taylorhi 08/28/18 21:56 Crit Value Called By 22 08/28/18 21:56 Crit Value Read Back Y 08/28/18 21:56 Blood Gas Notified Time 220208/28/18 21:56 Sodium 137 mmol/l (132-148) 08/29/18 04:35 Potassium 3.6 MMOL/L (3.6-5.0) 08/29/18 04:35 Chloride 104 mmol/L (98-107) 08/29/18 04:35 Carbon Dioxide 23 mmol/L (22-30) 08/29/18 04:35 Anion Gap 14 (10-20) 08/29/18 04:35 BUN 13 mg/dl (9-20) 08/29/18 04:35 Creatinine 1.1 mg/dl (0.8-1.5) 08/29/18 04:35 Est GFR ( Amer) > 60 08/29/18 04:35 Est GFR (Non-Af Amer) > 60 08/29/18 04:35 Random Glucose 122 mg/dL (75-110) H 08/29/18 04:35 Lactic Acid 1.0 MMOL/L (0.7-2.1) 08/29/18 14:09 Calcium 8.2 mg/dL (8.4-10.2) L 08/29/18 04:35 Venous Blood Potassium 4.1 mmol/L (3.6-5.2) 08/28/18 21:56 Urine Color Yellow (YELLOW) 08/29/18 12:20 Urine Clarity Clear (Clear) 08/29/18 12:20 Urine pH 6.0 (5.0-8.0) 08/29/18 12:20 Ur Specific [place] 1.023 (1.003-1.030) 08/29/18 12:20 Urine Protein Negative mg/dL (NEGATIVE) 08/29/18 12:20 Urine Glucose (UA) Neg mg/dL (NEGATIVE) 08/29/18 12:20 Urine Ketones 20 mg/dL (NEGATIVE) 08/29/18 12:20 Urine Blood Moderate (NEGATIVE) 08/29/18 12:20 Urine Nitrate Negative (NEGATIVE) 08/29/18 12:20 Urine Bilirubin Negative (NEGATIVE) 08/29/18 12:20 Urine Urobilinogen 0.2-1.0 mg/dL (0.2-1.0) 08/29/18 12:20 Ur Leukocyte Esterase Neg Lacey/uL (Negative) 08/29/18 12:20 Urine RBC (Auto) 8 /hpf (0-3) H 08/29/18 12:20 Urine Microscopic WBC 1 /hpf (0-5) 08/29/18 12:20 Influenza Typ A,B (EIA) Negative for flu a/b (NEGATIVE) 08/28/18 21:49 Blood Type B POSITIVE 08/28/18 21:49 Blood Type Confirm B POSITIVE 08/28/18 23:33 Antibody Screen Negative 08/28/18 21:49 Crossmatch See Detail 08/28/18 21:49 BBK History Checked No verified bt 08/28/18 21:49 - Hospital Course Hospital Course: 32 yo M with internal hemorrhoids, admitted due to bleeding hemorrhoids. Pt came to ED after 12 hrs of what he described as constant flow of blood from his rectum. He was hemodynamically stable and had a Hgb of 14 on presentation. Serial CBCs were done; on repeat CBC, Hgb 13, also he was found to have leukocytosis at 12; also had elevated lactate at 2.7; also this am endorsed that he has been feeling congestion/tactile fevers x 2 days. Received 500 mg azithromycin IV. General surg was consulted and he was taken to OR today for hemorrhoidectomy- tolerated procedure well. Lactate normalized and leukocytosis resolved on repeat CBC; Hgb stable at 13.1. Pt seen after returning to floor from surgery - reports feeling better; no bleeding. Started on liquid diet. Will advance diet and plan for discharge after dinner. Discussed with patient scripts: azithromycin for 4 more days (sent to pharmacy), colace twice daily (sent to pharmacy), and percocet 5-325 for moderate- severe pain (5 tabs, paper script provided, co-signed by Dr. Balderas); advised regular tylenol for mild pain (no more than 4grams total from all sources). To follow up with surgery and PMD in 1 week; may follow up with [facility]. Discharge Exam - Head Exam Head Exam: ATRAUMATIC, NORMAL INSPECTION, NORMOCEPHALIC - Eye Exam Eye Exam: Normal appearance - ENT Exam ENT Exam: Mucous Membranes Moist - Respiratory Exam Respiratory Exam: Clear to PA & Lateral, NORMAL BREATHING PATTERN. absent: Wheezes - Cardiovascular Exam Cardiovascular Exam: REGULAR RHYTHM, +S1, +S2 - GI/Abdominal Exam GI & Abdominal Exam: Soft - Extremities Exam Extremities exam: normal inspection - Neurological Exam Neurological exam: Alert, Oriented x3 - Psychiatric Exam Psychiatric exam: Normal Mood - Skin Skin Exam: Dry, Normal Color, Warm Discharge Plan - Discharge Medications Prescriptions: Azithromycin [Zithromax] 250 mg PO DAILY #4 tab Docusate [Colace] 100 mg PO BID #30 cap oxyCODONE/Acetaminophen [Percocet 5/325 mg Tab] 1 ea PO Q6 PRN #5 tab PRN Reason: Pain, Moderate (4-7) - Follow Up Plan Condition: FAIR Disposition: HOME/ ROUTINE Instructions: Hemorrhoids (DC), Hemorrhoidectomy (DC) Additional Instructions: Please take azithromycin- 1 tab daily for 4 days starting tomorrow. Please take colace twice daily- sent to pharmacy. Percocet for pain as needed, 1 tab every 6 hrs- do not drive while taking percocet; may also take tylenol for pain but do not exceed 4 grams (4,000 mg) of acetaminophen in 24 hrs (each percocet has 325 mg of acetaminophen). Please follow up with surgeon Dr. Ryan in office in 1 week; please also follow up with PMD in 1 week. If you do not have PMD- make apt at [facility]. Return to ED if bleeding recurs. Referrals: [facility] [Provider Group] Nader Ryan MD [Staff Provider] - <Henrietta Balderas - Last Filed: 08/29/18 18:19> Provider - Provider Date of Admission: 08/29/18 00:25 Attending physician: Adrianna Darling MD Consults: 08/29/18 08:00 Surgery [General Surgery Consult] Routine Comment: Consulting Provider: Jw Maya Consulting Physician: Jw Maya Reason for Consult: rectal bleed Hospital Course - Lab Results Lab Results: Most Recent Lab Values WBC 7.8 K/uL (4.8-10.8) 08/29/18 14:09 RBC 4.31 Mil/uL (4.40-5.90) L 08/29/18 14:09 Hgb 13.1 g/dL (12.0-18.0) 08/29/18 14:09 Hct 38.5 % (35.0-51.0) 08/29/18 14:09 MCV 89.2 fl (80.0-94.0) 08/29/18 14:09 MCH 30.4 pg (27.0-31.0) 08/29/18 14:09 MCHC 34.1 g/dL (33.0-37.0) 08/29/18 14:09 RDW 13.6 % (11.5-14.5) 08/29/18 14:09 Plt Count 141 K/uL (130-400) 08/29/18 14:09 MPV 7.2 fl (7.2-11.7) 08/29/18 14:09 Neut % (Auto) 81.7 % (50.0-75.0) H 08/29/18 14:09 Lymph % (Auto) 11.4 % (20.0-40.0) L 08/29/18 14:09 [place] % (Auto) 6.0 % (0.0-10.0) 08/29/18 14:09 Eos % (Auto) 0.5 % (0.0-4.0) 08/29/18 14:09 Baso % (Auto) 0.4 % (0.0-2.0) 08/29/18 14:09 Neut # (Auto) 6.4 K/uL (1.8-7.0) 08/29/18 14:09 Lymph # (Auto) 0.9 K/uL (1.0-4.3) L 08/29/18 14:09 [place] # (Auto) 0.5 K/uL (0.0-0.8) 08/29/18 14:09 Eos # (Auto) 0.0 K/uL (0.0-0.7) 08/29/18 14:09 Baso # (Auto) 0.0 K/uL (0.0-0.2) 08/29/18 14:09 Neutrophils % (Manual) 84 % (42-75) H 08/28/18 21:49 Band Neutrophils % 5 % (0-2) H 08/28/18 21:49 Lymphocytes % (Manual) 9 % (20-50) L 08/28/18 21:49 Monocytes % (Manual) 2 % (0-10) 08/28/18 21:49 Platelet Estimate Normal (NORMAL) 08/28/18 21:49 PT 13.9 Seconds (9.8-13.1) H 08/28/18 21:49 INR 1.2 08/28/18 21:49 APTT 27.6 Seconds (25.6-37.1) 08/28/18 21:49 pO2 21 mm/Hg (30-55) L 08/28/18 21:56 VBG pH 7.49 (7.32-7.43) H 08/28/18 21:56 VBG pCO2 34 mmHg (40-60) L 08/28/18 21:56 VBG HCO3 25.7 mmol/L 08/28/18 21:56 VBG Total CO2 26.9 mmol/L (22-28) 08/28/18 21:56 VBG O2 Sat (Calc) 46.3 % (40-65) 08/28/18 21:56 VBG Base Excess 2.9 mmol/L (0.0-2.0) H 08/28/18 21:56 VBG Potassium 4.1 mmol/L (3.6-5.2) 08/28/18 21:56 Sodium 137.0 mmol/L (132-148) 08/28/18 21:56 Chloride 104.0 mmol/L (98-107) 08/28/18 21:56 Glucose 109 mg/dL (75-110) 08/28/18 21:56 Lactate 2.7 mmol/L (0.7-2.1) H 08/28/18 21:56 FiO2 21.0 % 08/28/18 21:56 Blood Gas Comments Lac=2.7 08/28/18 21:56 Crit Value Called To josh Taylor 08/28/18 21:56 Crit Value Called By 22 08/28/18 21:56 Crit Value Read Back Y 08/28/18 21:56 Blood Gas Notified Time 220208/28/18 21:56 Sodium 137 mmol/l (132-148) 08/29/18 04:35 Potassium 3.6 MMOL/L (3.6-5.0) 08/29/18 04:35 Chloride 104 mmol/L (98-107) 08/29/18 04:35 Carbon Dioxide 23 mmol/L (22-30) 08/29/18 04:35 Anion Gap 14 (10-20) 08/29/18 04:35 BUN 13 mg/dl (9-20) 08/29/18 04:35 Creatinine 1.1 mg/dl (0.8-1.5) 08/29/18 04:35 Est GFR ( Amer) > 60 08/29/18 04:35 Est GFR (Non-Af Amer) > 60 08/29/18 04:35 Random Glucose 122 mg/dL (75-110) H 08/29/18 04:35 Lactic Acid 1.0 MMOL/L (0.7-2.1) 08/29/18 14:09 Calcium 8.2 mg/dL (8.4-10.2) L 08/29/18 04:35 Venous Blood Potassium 4.1 mmol/L (3.6-5.2) 08/28/18 21:56 Urine Color Yellow (YELLOW) 08/29/18 12:20 Urine Clarity Clear (Clear) 08/29/18 12:20 Urine pH 6.0 (5.0-8.0) 08/29/18 12:20 Ur Specific [place] 1.023 (1.003-1.030) 08/29/18 12:20 Urine Protein Negative mg/dL (NEGATIVE) 08/29/18 12:20 Urine Glucose (UA) Neg mg/dL (NEGATIVE) 08/29/18 12:20 Urine Ketones 20 mg/dL (NEGATIVE) 08/29/18 12:20 Urine Blood Moderate (NEGATIVE) 08/29/18 12:20 Urine Nitrate Negative (NEGATIVE) 08/29/18 12:20 Urine Bilirubin Negative (NEGATIVE) 08/29/18 12:20 Urine Urobilinogen 0.2-1.0 mg/dL (0.2-1.0) 08/29/18 12:20 Ur Leukocyte Esterase Neg Lacey/uL (Negative) 08/29/18 12:20 Urine RBC (Auto) 8 /hpf (0-3) H 08/29/18 12:20 Urine Microscopic WBC 1 /hpf (0-5) 08/29/18 12:20 Influenza Typ A,B (EIA) Negative for flu a/b (NEGATIVE) 08/28/18 21:49 Blood Type B POSITIVE 08/28/18 21:49 Blood Type Confirm B POSITIVE 08/28/18 23:33 Antibody Screen Negative 08/28/18 21:49 Crossmatch See Detail 08/28/18 21:49 BBK History Checked No verified bt 08/28/18 21:49 Attending/Attestation - Attestation I have personally seen and examined this patient.: Yes I have fully participated in the care of the patient.: Yes I have reviewed all pertinent clinical information, including history, physical exam and plan: Yes Notes (Text): Bleeding Internal Hemorrhoids s/p Hemorrhoidectomy URI - Pt underwent Hemorrhoidectomy, post op - tolerated PO diet, voiding freely - cleared by surgery for d/c - leukocytosis resolved- prob reactive - low grade fever prob due to URI - pt came with some sorethroat and cough - started on Azithro, CXR neg -d/c home, ff up with PMCatalina hemphill, ff up with Dr Ryan in 1 wk
--- NOTE | 2018-08-30 00:01 | OP ---
PROCEDURE DATE: 08/29/2018 PREOPERATIVE DIAGNOSIS: Bleeding internal hemorrhoid. POSTOPERATIVE DIAGNOSIS: Bleeding internal hemorrhoid. PROCEDURE: Examination under anesthesia and hemorrhoidectomy. SURGEON: Nader Ryan MD HOME HEALTH OUTREACH COORDINATOR: Damian Washington DO, salesperson surgical appliances. ANESTHESIOLOGIST: Yvonne Schroeder MD ANESTHESIA: General endotracheal intubation. INTRAVENOUS FLUIDS: Crystalloids. ESTIMATED BLOOD LOSS: 10 mL. SPECIMEN: Hemorrhoid. INTRAOPERATIVE FINDINGS: Bleeding internal hemorrhoid on the right, 7 o'clock position. BRIEF HISTORY: Mr. Graciela Santiago is a very pleasant 32-year-old gentleman who came to the hospital complaining of bright red blood per rectum and upon further investigation, the patient was found to have a bleeding hemorrhoid. All the risks and benefits of the procedure were explained to the patient. With the patient having a full understanding of all the risks and benefits involved, informed consent was obtained and the patient was taken to the operating room for the above-stated procedure. DESCRIPTION OF PROCEDURE: The patient was brought into the operating room on a stretcher and was intubated on the stretcher by the Anesthesia team. Subsequent to that, the patient was placed in a Jackknife position on the operating room table and subsequent to that, retraction of the buttocks was obtained with a white silk tape. At this point in time, the patient's buttocks and perianal and perineal area were prepped with Betadine and draped in a standard surgical fashion. Prior to beginning of the procedure, the patient received prophylactic Ancef antibiotic. A time-out was called in the room and everyone in the room were in agreement. Using digital rectal examination, the rectal vault was examined. We were able to visualize bleeding internal hemorrhoid on the right side at 7 o'clock position and upon palpation of the rectal vault, there appeared to be no masses and the sphincter tone was good. At this point in time, the retractor was inserted into the patient's anal canal and subsequent to that, the hemorrhoid was clamped with hemorrhoid clamp and using #15 blade scalpel knife, the distal rectal mucosa and the anoderm were incised and the hemorrhoid was dissected off with electrocautery. Once the hemorrhoid was completely freed up, it we passed off to the [facility] as a specimen. At this point in time, hemostasis was achieved with electrocautery and subsequent to that, anoderm defect and distal rectal defect were approximated with interrupted 3-0 chromic sutures. Once this was accomplished, the patient's anal canal was irrigated and dried. Hemostasis was confirmed. At this point in time, the white silk tape was released and the side of the incision was infiltrated with 0.5% Marcaine local anesthetic. At this point in time, the patient was flipped back to the stretcher, was successfully extubated by the Anesthesia team and taken to the recovery room in a stable condition. At the end of the procedure, all instrument counts, needles, and sponges were correct. Nader Ryan MD
== END 2018-08-29 18:54 | disposition home or self-care (01) | DRG 226 ==
LOC: H.ER 20:59 → H.ERHOLD 08-29 00:25 → H.TEL 08-29 03:00
PROVIDERS: ADMIT Internal Medicine; ATTEND Internal Medicine
PROC: 3E02340 Introduction of Influenza Vaccine into Muscle, Percutaneous Approach (ICD-10-PCS; 2018-08-29)
PROC: 06BY3ZC Excision of Hemorrhoidal Plexus, Percutaneous Approach (ICD-10-PCS; principal; 2018-08-29 11:15)
DX: K64.8 Other hemorrhoids (principal); J06.9 Acute upper respiratory infection, unspecified; Z23 Encounter for immunization; K59.09 Other constipation